=== PATIENT | female | born 1985 | race Caucasian/White ===

== ENCOUNTER 2020-12-05 08:50 | Emergency (ER) | payer SELFPAY ==
[2020-12-05 08:50] VITALS: BP 103/61; PULSE 106; RESP 18; TEMP 35.2; O2SAT 95; BMI 26.1; BMI 26.6
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
[2020-12-05 09:30] LABS: Basophils # 0.1 K/mm3 (0-0.2); Basophils % 0.7 % (0.1-2.0); Chloride 96 mmol/L (98-107); Eosinophils # 0.1 K/mm3 (0.0-0.4); Eosinophils % 0.9 % (0.1-12.0); Hematocrit 44.6 % (37.0-47.0); Hemoglobin 15.2 g/dL (12.2-16.2); Lymphocytes # 2.3 K/mm3 (0.7-4.5); Lymphocytes % 15.1 % (10-50); Mean Corpuscular HGB Conc 34.1 g/dL (31.8-35.4); Mean Platelet Volume 7.5 fl (7.4-10.4); Monocytes # 0.7 K/mm3 (0.1-1.0); Monocytes % 4.4 % (1.7-9.3); Neutrophils # 12.2 K/mm3 (1.8-7.8); Neutrophils % 78.9 % (37.0-80.0); Platelet Count 352 K/mm3 (142-424); Potassium 3.5 mmoL/L (3.5-5.1); Red Blood Count 4.74 M/mm3 (4.20-5.40); Red Cell Distribution Width 13.3 % (11.5-17.5); Sodium 135 mmol/L (136-145); White Blood Count 15.4 K/mm3 (4.8-10.8)
[2020-12-05 09:31] LABS: MANUAL DIFFERENTIAL MANUAL DIFFERENTIAL (MANUAL DIFF)
[2020-12-05 09:33] LABS: Alanine Aminotransferase 26 U/L (12-78); Albumin Level 4.8 g/dl (3.5-5.0); Albumin/Globulin Ratio 1.4 (1.1-1.8); Alkaline Phosphatase 92 U/L (38-126); Anion Gap 16.5 mEq/L (5-15); Aspartate Amino Transferase 65 U/L (14-36); Bilirubin,Total 0.7 mg/dl (0.2-1.3); Blood Urea Nitrogen 62 mg/dl (7-17); Calcium 9.8 mg/dl (8.4-10.2); Carbon Dioxide 26 mmol/L (22.0-30.0); Creatinine Clearance Estimated 11 mL/min (50-200); Estimated Glomerular Filt Rate 6 ml/min (>60); GFR (African American) 7 ML/MIN (>60); Globulin 3.5 g/dL (1.3-3.2); Glucose 101 mg/dl (74-100); Total Protein,Serum 8.3 g/dl (6.3-8.2)
[2020-12-05 09:45] LABS: Eosinophils % 1 % (0-3); Lymphocytes % 18 % (10-50); Monocytes % 5 % (2-9); Neutrophils % 74 % (42-76); Platelet Estimate Normal; RBC Morphology Normal; Total Cells Counted 100
[2020-12-05 09:48] LABS: Ethyl Alcohol < 10 mg/dl (0-10)
[2020-12-05 09:51] LABS: HCG,Quantitative 12 mIU/ml (0-5.42)
[2020-12-05 10:00] VITALS: BP 109/68; PULSE 85; RESP 18; O2SAT 95
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
[2020-12-05 10:21] LABS: Lactic Acid 0.9 mmol/L (0.7-2.1)
[2020-12-05 10:22] LABS: Chloride 102 mmol/L (98-107)
[2020-12-05 10:23] LABS: Potassium 3.4 mmoL/L (3.5-5.1); Sodium 135 mmol/L (136-145)
[2020-12-05 10:25] LABS: Alanine Aminotransferase 21 U/L (12-78); Aspartate Amino Transferase 56 U/L (14-36); Blood Urea Nitrogen 57 mg/dl (7-17); Creatinine Clearance Estimated 13 mL/min (50-200); Estimated Glomerular Filt Rate 7 ml/min (>60); GFR (African American) 9 ML/MIN (>60)
[2020-12-05 10:26] LABS: Albumin/Globulin Ratio 1.3 (1.1-1.8); Alkaline Phosphatase 75 U/L (38-126); Anion Gap 13.4 mEq/L (5-15); Bilirubin,Total 0.5 mg/dl (0.2-1.3); Carbon Dioxide 23 mmol/L (22.0-30.0); Glucose 103 mg/dl (74-100)
[2020-12-05 10:28] LABS: Calcium 8.6 mg/dl (8.4-10.2)
--- NOTE | 2020-12-05 10:40 | PC.NURSE ---
urine sent to lab
[2020-12-05 10:43] LABS: Microscopic, Urine URINE MICROSCOPIC (MICROSCOPIC)
[2020-12-05 10:45] LABS: Appearance,Urine CLEAR (Clear); Bilirubin,Urine Negative (Negative); Blood, Urine 3+ (Negative); Color,Urine YELLOW (Yellow); Glucose,Urine (UA) Negative (Negative); Ketones,Urine Negative (Negative); Leukocyte Esterase,Urine Negative (Negative); Nitrate,Urine Negative (Negative); Protein,Urine 1+ (Negative); Urobilinogen,Urine 0.2 EU/dl (0.2)
[2020-12-05 10:58] LABS: Barbiturates Screen,Urine Negative ng/ml (<200)
[2020-12-05 10:59] LABS: Benzodiazepines Screen,Urine Positive ng/ml (<200)
[2020-12-05 11:00] LABS: Cannabinoid Screen,Urine Positive ng/ml (<50); Cocaine Screen,Urine Negative ng/ml (<300)
[2020-12-05 11:01] LABS: Methadone Screen,Urine Negative ng/ml (<300)
[2020-12-05 11:02] LABS: Opiate Screen,Urine Positive ng/ml (<300); Phencyclidine Screen,Urine Negative ng/ml (<25)
--- NOTE | 2020-12-05 11:06 | PC.NURSE ---
Patient states that she needs to go to the bathroom. MD cleared patient to ambulate to bathroom with assistance of RN. Patient ambulated well and tolerated weight on all extremities. Patient states that she is sore, but feels better at this time.
[2020-12-05 11:10] LABS: Amphetamine/Metha Screen,Urine Positive ng/ml (<1000)
--- NOTE | 2020-12-05 12:16 | PC.NURSE ---
patient delivered lunch tray and is sitting up in bed eating at this time.
[2020-12-05 13:01] LABS: Chloride 106 mmol/L (98-107); Potassium 3.4 mmoL/L (3.5-5.1); Sodium 139 mmol/L (136-145)
[2020-12-05 13:04] LABS: Alanine Aminotransferase 20 U/L (12-78); Albumin Level 3.8 g/dl (3.5-5.0); Albumin/Globulin Ratio 1.3 (1.1-1.8); Alkaline Phosphatase 71 U/L (38-126); Anion Gap 10.4 mEq/L (5-15); Aspartate Amino Transferase 53 U/L (14-36); Bilirubin,Total 0.6 mg/dl (0.2-1.3); Blood Urea Nitrogen 49 mg/dl (7-17); Carbon Dioxide 26 mmol/L (22.0-30.0); Creatinine Clearance Estimated 18 mL/min (50-200); Estimated Glomerular Filt Rate 11 ml/min (>60); GFR (African American) 13 ML/MIN (>60); Globulin 2.9 g/dL (1.3-3.2); Total Protein,Serum 6.7 g/dl (6.3-8.2)
[2020-12-05 13:05] LABS: Calcium 8.3 mg/dl (8.4-10.2); Glucose 113 mg/dl (74-100)
[2020-12-05 13:45] VITALS: BP 110/81; PULSE 89; RESP 18; TEMP 36.6; O2SAT 96
== END 2020-12-05 13:45 | disposition home or self-care (01) ==
PROVIDERS: Emergency Provider Internal Medicine
DX: E86.0 Dehydration (principal); N28.9 Disorder of kidney and ureter, unspecified; N18.9 Chronic kidney disease, unspecified; V48.0XXA Car driver injured in noncollision transport accident in nontraffic accident, initial encounter; Y92.488 Other paved roadways as the place of occurrence of the external cause; Z88.0 Allergy status to penicillin
CPT/HCPCS: 70450; 71045; 71250; 72125; 72128; 72131; 72170; 73590; 74176; 80053; 80305; 81001; 83605; 84702; 85007; 85025; 96365; 96375; 99282; J2405